=== PATIENT | female | born 1975 ===

== ENCOUNTER 2021-04-26 10:15 | Inpatient (IN) | payer OTHER ==
[~2021-04-26] VITALS: Ht 165.1 cm; Wt 82.6 kg
[2021-05-01] MEDS ORDERED: NORFLEX PO (17:51)
[2021-05-01] MEDS ORDERED: FLEXERIL PO (17:52)
[2021-05-03] MEDS ORDERED: CYCLOBENZAPRINE5 MG PO (08:22)
[2021-05-03] MEDS ORDERED: ORPHENADRINE C100 MG (08:23)
== END 2021-05-05 11:54 | disposition home or self-care (01) | DRG 743 ==
LOC: O/R 05-03 05:53 → OB/GYN 05-03 05:53 → SURH 05-03 07:00 → OB/GYN 05-03 11:47
PROVIDERS: ADMIT Specialist; ATTEND Specialist
PROC: 0UB70ZZ Excision of Bilateral Fallopian Tubes, Open Approach (ICD-10-PCS; 2021-05-03)
PROC: 0UT90ZZ Resection of Uterus, Open Approach (ICD-10-PCS; principal; 2021-05-03 07:00)
DX: D25.1 Intramural leiomyoma of uterus (principal); D25.2 Subserosal leiomyoma of uterus; N72 Inflammatory disease of cervix uteri; N84.0 Polyp of corpus uteri; Z20.822 Contact with and (suspected) exposure to COVID-19; N83.8 Other noninflammatory disorders of ovary, fallopian tube and broad ligament